=== PATIENT | female | born 1960 | race Caucasian/White ===

== ENCOUNTER 2022-09-05 17:32 | Outpatient (CLI) | payer OTHER, SELFPAY ==
--- NOTE | 2022-09-05 18:00 | CRLHL7_ITS ---
For Patients: As a result of the Century Cures Act, medical imaging exams and procedure reports are released immediately into your electronic medical record. You may view this report before your referring provider. If you have questions, please contact your health care provider. INDICATION: Right upper quadrant abdomen pain. TECHNIQUE: Ultrasound abdomen limited. Sonographic images of the right upper quadrant were obtained using stevenson-scale and color Doppler images. COMPARISON: None. FINDINGS: Liver: Coarse slightly echogenic liver.. No suspicious masses. No intrahepatic biliary dilatation. Gallbladder: No stones or sludge. Normal wall thickness. No pericholecystic fluid. Common bile duct: 5 mm. Pancreas: Unremarkable. Tail not visualized. Right kidney: Normal in size. Normal echotexture and cortex. No suspicious masses, stones, or hydronephrosis. Vasculature: Proximal abdominal aorta and IVC are unremarkable. IMPRESSION: Gallbladder is unremarkable. No stones or sludge identified. No gallbladder wall thickening. Echogenic liver with slightly coarsened echotexture may reflect chronic liver disease, hepatic steatosis. Dictated by Galo Kirk MD @ 09/05/2022 6:30:15 PM (Electronically Signed)
== END 2022-09-05 17:33 | disposition home or self-care (01) ==
PROVIDERS: PCP Family Medicine; Visit Provider Family Medicine
DX: R10.11 Right upper quadrant pain (principal)
CPT/HCPCS: 76705; 80053; 82150; 83690

== ENCOUNTER 2022-09-30 08:18 | Outpatient (CLI) | payer OTHER, SELFPAY | END 2022-09-30 08:19 | disposition home or self-care (01) | LOC: NFLDREF 15:39 | PROVIDERS: PCP Family Medicine; Referring Provider Family Medicine; Visit Provider Family Medicine | DX: Z00.00 Encounter for general adult medical examination without abnormal findings (principal); E78.5 Hyperlipidemia, unspecified; E55.9 Vitamin D deficiency, unspecified; Z13.6 Encounter for screening for cardiovascular disorders | CPT/HCPCS: 80053; 80061; 82306 ==

== ENCOUNTER 2022-12-17 12:46 | Outpatient (CLI) | payer OTHER, SELFPAY ==
--- NOTE | 2022-12-17 13:00 | CRLHL7_ITS ---
For Patients: As a result of the Cures Act, medical imaging exams and procedure reports are released immediately into your electronic medical record. You may view this report before your referring provider. If you have questions, please contact your health care provider. BILATERAL SCREENING MAMMOGRAM WITH COMPUTER-AIDED DETECTION AND TOMOSYNTHESIS TECHNIQUE: CC and MLO views were obtained. These mammographic images have been obtained using full-field digital technique. These mammographic images were interpreted with the benefit of computer-aided detection. Breast Tomosynthesis was used in this interpretation. COMPARISON FILM: 02/07/21, 01/11/20, 09/01/18. FINDINGS: There are scattered areas of fibroglandular density IMPRESSION: There is no radiographic evidence for malignancy. ASSESSMENT: BI-RADS Category 1: Negative RECOMMENDATION: Routine screening mammogram in 1 year. A lay language report of this examination will be provided to the patient. Juarez Salazar M.D. Diagnostic Radiologist [email or web address] [email or web address] Transcribed: 3:08 p.alan ramirez/Dictated by: Juarez Salazar MD @ 12/18/2022 11:17:00 AM (Electronically Signed)
== END 2022-12-17 12:47 | disposition home or self-care (01) ==
LOC: MAMMO 12:47
PROVIDERS: PCP Family Medicine; Visit Provider Family Medicine
DX: Z12.31 Encounter for screening mammogram for malignant neoplasm of breast (principal)
CPT/HCPCS: 77063; 77067

== ENCOUNTER 2024-01-16 07:35 | Outpatient (CLI) | payer BC, SELFPAY | END 2024-01-16 07:36 | disposition home or self-care (01) | LOC: NFLDREF 01-18 09:56 | PROVIDERS: PCP Family Medicine; Referring Provider Family Medicine; Visit Provider Family Medicine | DX: R10.11 Right upper quadrant pain (principal); E55.9 Vitamin D deficiency, unspecified; E78.5 Hyperlipidemia, unspecified; R53.83 Other fatigue; M81.0 Age-related osteoporosis without current pathological fracture | CPT/HCPCS: 80053; 80061; 82306 ==

== ENCOUNTER 2024-02-09 09:42 | Outpatient (CLI) | payer BC, SELFPAY ==
--- OUTSIDE RECORDS SUMMARY | 2024-02-09 09:44 | XMS_ITS | Clinical Summary ---
Author Organization [email or web address] [facility] Address [place], [place] [address] Care Team Providers Care Flaring Machine Operator Name Role Phone Roxane Martin MD Primary Care Provider Unavailable Allergies No known active allergies Medications No known medications Social History Tobacco Use Types Packs/Day Years Used Date Smoking Tobacco: Never Alcohol Use Standard Drinks/Week Comments No 0 (1 standard drink = 0.6 oz pur e alcohol) occasional Sex and Gender Information Value Date Recorded Sex Assigned at Not on file Gender Identity Not on file Sexual Orientation Not on file Obstetrics History Last Filed Vital Signs Vital Sign Reading Time Taken Comments Blood Pressure 118/76 10/31/2009 5:08 PM CDT Pulse 52 10/31/2009 5:08 PM CDT Temperature - - Respiratory Rate - - Oxygen Saturation - - Inhaled Oxygen Concentration - - Weight 68.9 kg (152 lb) 10/31/2009 5:08 PM CDT Height - - Body Mass Index - - Plan of Treatment Upcoming Encounters Date Type Department Care Team (Late st Contact Info) Description 02/09/2024 10:00 AM CDT Ancillary Procedure [facility] [address] [place] [address] Health Maintenance Due Date Last Done Comments Tdap 02/20/1972 Depression screening for age 12+ 1973 HIV for age 15-65 02/20/1976 BMI (ht and wt on same day) for age 18+ 1979 Hepatitis C screening for age 18-79 1979 Tetanus booster 1981 Colonoscopy through age 75 2006 Lipids for age 45-75 2006 Mammogram for age 45-75 2006 Zoster (shingles) series for age 50+ (1 of 2) 2011 Pap test for age 21-65 12/02/2023 , 12/01/2020, 06/09/2015, Additional history exists COVID-19 vaccine series ( season) 2024 Influenza for age 50-64 01/25/2024 Pneumococcal series for age 6-64 Aged Out No longer eligible based on patient's age to complete this topic Procedures Procedure Name Priority Date/Time Associated Diagnosis Comments GEOSCIENCE PROFESSOR THIN PREP PAP SCREEN IMAGED Routine 12/01/2020 9:50 AM CDT from Last 3 Months or Most Recently Relevant to Health Maintenance Results * GEOSCIENCE PROFESSOR THIN PREP PAP SCREEN IMAGED (12/01/2020 9:50 AM CDT) Case Report Gynecologic Cytology Report ? Case: [id number] ? Authorizing Provider: ??Shirley Hemphill PA-C ?Collected: ? 12/01/2020 0950 ? Ordering Location: ? [facility] ?Received: ?12/04/2020 1010 ? First Screen: ?Layne Carranza ? Specimen: ?GEOSCIENCE PROFESSOR ThinPrep Vial Screening, Cervical/Vaginal ? 12/13/2020 9:38 AM CDT [facility] INTERPRETATION/ RESULT NEGATIVE FOR INTRAEPITHELIAL LESION OR MALIGNANCY (NIL) (none) 12/13/2020 9:38 AM CDT [facility] IMEN ADEQUACY Satisfactory for evaluation Endocervical component present 12/13/2020 9:38 AM CDT [facility] HPV REQUEST HPV and PAP 12/13/2020 9:38 AM CDT [facility] Last Pap Date 06/09/2015 12/13/2020 9:38 AM CDT [facility] Last Pap Result NIL 9:38 AM CDT [facility] Comment:neg hpv Additional Information 12/13/2020 9:38 AM T [facility] Comment: Interpreted at [facility] - [address], [place] [address] Automated Review Successful 12/13/2020 9:38 AM T [facility] Comment:Specimen processed s uccessfully by automated supervisor laboratory animal facility device, ThinPrep Imaging System, [employer] ANCILLARY TESTING GEOSCIENCE PROFESSOR HPV Ordered, Please see separate report 12/13/2020 9:38 AM T [facility] Note The pap test is a screening technique, not a diagnostic procedure. It is used primarily to screen for squamous cancers and precursor lesions. Published studies have shown that it is subject to both false negative and false positive results. The pap test should not be used as the sole means to diagnose or exclude pre-malignant and malignant lesions. 12/13/2020 9:38 AM T [facility] Other (Cervical/Vagina l) 12/01/2020 9:50 AM CDT 12/04/2020 10:10 AM CDT August Kanchan GONZALES PATHOLOGY/CYTOLOGY [facility] [address] [place] [address], from Last 3 Months or Most Recently Relevant to Health Maintenance Care Teams Flaring Machine Operator Relationship Specialty Start Date End Date Roxane Martin MD PCP - General 10/30/09
== END 2024-02-09 09:43 | disposition home or self-care (01) ==
LOC: RAD 09:42
PROVIDERS: PCP Family Medicine; Visit Provider Family Medicine
DX: I34.0 Nonrheumatic mitral (valve) insufficiency (principal); I51.7 Cardiomegaly
CPT/HCPCS: 93306

== ENCOUNTER 2024-03-29 14:29 | Outpatient (CLI) | payer BC, SELFPAY ==
--- OUTSIDE RECORDS SUMMARY | 2024-03-29 14:31 | XMS_ITS | Clinical Summary ---
Author Organization [employer] [facility] Address [place], [place] [address] Care Team Providers Care Damper Fitter Name Role Phone Roxane Martin MD Primary Care Provider Unavailable Allergies No known active allergies Medications No known medications Encounters Date Type Department Care Team Description 02/09/2024 10:00 AM CDT Ancillary Procedure [facility] [address] [place] [address] from Last 3 Months Social History Tobacco Use Types Packs/Day Years [...] Mass Index - - Plan of Treatment Health Maintenance Due Date Last Done Comments [...] Procedure Name Priority Date/Time Associated Diagnosis Comments ECHO TTE COMPLETE WO CONTRAST Routine 02/09/2024 10:35 AM CDT Nonrheumatic mitral (valve) insufficiency MATERIALS MANAGEMENT MANAGER THIN PREP PAP SCREEN IMAGED Routine 12/01/2020 9:50 AM CDT from Last 3 Months or Most Recently Relevant to Health Maintenance Results * ECHO TTE COMPLETE WO CONTRAST (02/09/2024 10:35 AM CDT) AORTIC VALVE MEAN PG 7 mmHg EJECTION FRACTION 61 % LVEDD 4.5 cm Anatomical Region Laterality Modality Ultrasound 02/09/2024 10:0 1 AM CDT Narrative 02/09/2024 12:36 PM CDT ECHOCARDIOGRAM TRAVIS GILES ? Accession#: ?? [id number] : ?1960 63 years Study Date: ?? 02/09/2024 10:01:15 AM Gender: F ?BP: ? 135/76 mmHg Height: 173.00 cm ?BSA: ?1.87 m? ? ? Weight: 73.00 kg ? Tech: ? MBF ? Referring MD: SRIKANTH DANIELLE HERNBERG Site: ? [facility] Reading Location: Mobile OP Patient Location: Outpatient. Procedure: 2D, Color Doppler and Spectral Doppler. Indication for study: MR Cardiac Rhythm: Sinus bradycardia.Study quality: Good. Final Impressions: 1. Normal left ventricular size, normal wall thickness, normal global systolic function, calculated EF of 61 %. 2. Mildly enlarged left atrium. 3. The mitral valve is normal, trace mitral regurgitation. 4. Compared to the prior study of 07/08/2016, there is no significant change. Chamber Sizes and Function Normal left ventricular size, normal wall thickness, normal global systolic function, calculated EF of 61 %. Left atrial size is mildly enlarged. Left atrial pressure is normal. Right ventricular cavity size is normal, global systolic RV function is normal. RV wall thickness is normal. The right atrium is normal. Right atrial volume index is 26 ml/m? ? ?. Right atrial area is 17 cm? ? ?. The pulmonary artery is of normal size and origin. The sinus of Valsalva is normal sized. The ascending aorta is normal sized. Valves, RV Pressures and Diastolic Function The aortic valve is normal in structure and trileaflet, no stenosis and trivial regurgitation. The mitral valve is normal in structure, trace mitral regurgitation. Normal diastolic function. The tricuspid valve is normal in structure. Tricuspid regurgitation is trace regurgitation. The pulmonic valve is normal. Trace pulmonary regurgitation. Masses, Effusion, Shunts There is no pericardial effusion. The inferior vena cava is dilated, respiratory size variation greater than 50%. No left to right shunting was detected by limited color flow Doppler interrogation of the interatrial septum. MEASUREMENTS AND CALCULATIONS 2-D Measurements and LV Function: LVID (d) 4.5 cm Planimetered EF 61 % LVID (s) 3.4 cm LV FS% (2D) ? 23 % IVS (d) ??1.0 cm LVOT diameter ?? 2.2 cm LVPW (d) 1.0 cm HR ?55 bpm Ao Sinus 3.1 cm LA Vol index ?36 ml/m2 Asc Ao ?? 3.4 cm RA Vol index ?26 ml/m2 ?RA area ? 17 cm?RV Max 4C (d) ?? 3.9 cm Diastology: Mitral ?Tissue Doppler E Peak 0.8 m/s ??e', Septum ? 0.10 m/s A Peak 0.9 m/s ??e', Lateral ?0.10 m/s E/A ?1.0 ?E/e' Average ?? 8.26 DT ? 234 msec Aortic Valve: Vmax ? 1.7 m/s ??SUPRIYA (V) ?? 2.55 cm? ? ? VTI ?0.49 m ?? SUPRIYA (I) ?? 2.41 cm? ? ? LVOT V max 1.2 m/s ??Max PG ?12 mmHg LVOT VTI ?? 0.33 m ?? Mean PG ?? 7 mmHg SV ? 119 ml ?? Dim Index 0.66 SV index ?? 64 ml/m? ? ? CO ?6.5 l/min ?CI ?3.5 l/min/m? ? ? Mitral Valve: MVA ?3.2 cm? ? ? MV P 1/2 68 msec Tricuspid Valve and estimated PA pressures: TAPSE 2.5 cm . This study was interpreted by an [facility] accredited facility. CC: [facility]. ??Final ?? Procedure Note Juarez Love MD - 02/09/2024 ECHOCARDIOGRAM TRAVIS GILES : 1960 63 years Study Date: 02/09/2024 10:01:15 AM Gender: F BP: 135/76 mmHg Height: 173.00 cm BSA: 1.87 m? ? ? Weight: 73.00 kg Tech: JENNIFER Referring MD: SRIKANTH RAJPUT Site: [facility] Reading Location: Mobile OP Patient Location: Outpatient. Procedure: 2D, Color Doppler and Spectral Doppler. Indication for study: MR Cardiac Rhythm: Sinus bradycardia.Study quality: Good. Final Impressions: 1. Normal left ventricular size, normal wall thickness, normal globalsystolic function, calculated EF of 61 %. 2. Mildly enlarged left atrium. 3. The mitral valve is normal, trace mitral regurgitation. 4. Compared to the prior study of 07/08/2016, there is no significantchange. Chamber Sizes and Function Normal left ventricular size, normal wall thickness, normal globalsystolic function, calculated EF of 61 %. Left atrial size is mildlyenlarged. Left atrial pressure is normal. Right ventricular cavity size isnormal, global systolic RV function is normal. RV wall thickness isnormal. The right atrium is normal. Right atrial volume index is 26ml/m? ? ?. Right atrial area is 17 cm? ? ?. The pulmonary artery is of normalsize and origin. The sinus of Valsalva is normal sized. The ascendingaorta is normal sized. Valves, RV Pressures and Diastolic Function The aortic valve is normal in structure and trileaflet, no stenosis andtrivial regurgitation. The mitral valve is normal in structure, tracemitral regurgitation. Normal diastolic function. The tricuspid valve isnormal in structure. Tricuspid regurgitation is trace regurgitation. Thepulmonic valve is normal. Trace pulmonary regurgitation. Masses, Effusion, Shunts There is no pericardial effusion. The inferior vena cava is dilated,respiratory size variation greater than 50%. No left to right shunting wasdetected by limited color flow Doppler interrogation of the interatrialseptum. MEASUREMENTS AND CALCULATIONS 2-D Measurements and LV Function: LVID (d) 4.5 cm Planimetered EF 61 % LVID (s) 3.4 cm LV FS% (2D) 23 % IVS (d) 1.0 cm LVOT diameter 2.2 cm LVPW (d) 1.0 cm HR 55 bpm Ao Sinus 3.1 cm LA Vol index 36 ml/m2 Asc Ao 3.4 cm RA Vol index 26 ml/m2 RA area 17 cm? ? ? RV Max 4C (d) 3.9 cm Diastology: Mitral Tissue Doppler E Peak 0.8 m/s e', Septum 0.10 m/s A Peak 0.9 m/s e', Lateral 0.10 m/s E/A 1.0 E/e' Average 8.26 DT 234 msec Aortic Valve: Vmax 1.7 m/s SUPRIAY (V) 2.55 cm? ? ? VTI 0.49 m SUPRIYA (I) 2.41 cm? ? ? LVOT V max 1.2 m/s Max PG 12 mmHg LVOT VTI 0.33 m Mean PG 7 mmHg SV 119 ml Dim Index 0.66 SV index 64 ml/m? ? ? CO 6.5 l/min CI 3.5 l/min/m? ? ? Mitral Valve: MVA 3.2 cm? ? ? MV P 1/2 68 msec Tricuspid Valve and estimated PA pressures: TAPSE 2.5 cm . This study was interpreted by an [facility] accredited facility. CC: [facility]. Final Srikanth Rajput MD ECHO ORD * MATERIALS MANAGEMENT MANAGER THIN PREP PAP SCREEN IMAGED (12/01/2020 9:50 AM CDT) Case Report Gynecologic Cytology Report ? Case: [id number] ? Authorizing Provider: ??Shirley Hemphill PA-C ?Collected: ? 12/01/2020 0950 ? Ordering Location: ? [facility] ?Received: ?12/04/2020 1010 ? First Screen: ?Layne Carranza ? Specimen: ?MATERIALS MANAGEMENT MANAGER ThinPrep Vial Screening, Cervical/Vaginal ? 12/13/2020 9:[address] [facility] INTERPRETATION/ RESULT NEGATIVE FOR INTRAEPITHELIAL LESION OR MALIGNANCY (NIL) (none) 12/13/2020 9:[address] [facility] IMEN ADEQUACY Satisfactory for evaluation Endocervical component present 12/13/2020 9:[address] [facility] HPV REQUEST HPV and PAP 12/13/2020 9:[address] [facility] Last Pap Date 06/09/2015 12/13/2020 9:[address] [facility] Last Pap Result NIL 9:[address] [facility] Comment:neg hpv Additional Information 12/13/2020 9:[address] [facility] Comment: Interpreted at [facility] - [address] [facility] [address], [place] [address] Automated Review Successful 12/13/2020 9:[address] [facility] Comment:Specimen processed s uccessfully by automated tray checker device, ThinPrep Imaging System, [employer] ANCILLARY TESTING MATERIALS MANAGEMENT MANAGER HPV Ordered, Please see separate report 12/13/2020 9:[address] [facility] Note The pap test is [...] pre-malignant and malignant lesions. 12/13/2020 9:38 AM CDT [facility] Other (Cervical/Vagina l) 12/01/2020 9:50 AM CDT 12/04/2020 10:10 AM CDT August Kanchan GONZALES PATHOLOGY/CYTOLOGY [facility] [address] [place] [address], from Last 3 Months or Most Recently Relevant to Health Maintenance Care Teams Damper Fitter Relationship Specialty Start Date End Date Roxane Martin MD PCP - General 10/30/09
--- NOTE | 2024-03-29 14:40 | CRLHL7_ITS ---
For Patients: As a result of the Century Cures Act, medical imaging exams and procedure reports are released immediately into your electronic medical record. You may view this report before your referring provider. If you have questions, please contact your health care provider. BILATERAL SCREENING MAMMOGRAM WITH COMPUTER-AIDED DETECTION AND TOMOSYNTHESIS TECHNIQUE: CC and MLO views were obtained. These mammographic images have been obtained using full-field digital technique. These mammographic images were interpreted with the benefit of computer-aided detection. Breast Tomosynthesis was used in this interpretation. COMPARISON FILM: 12/17/22, 02/07/21, 01/11/20. FINDINGS: There are scattered areas of fibroglandular density. IMPRESSION: There is no radiographic evidence for malignancy. ASSESSMENT: BI-RADS Category 1: Negative RECOMMENDATION: Routine screening mammogram in 1 year. A lay language report of this examination will be provided to the patient. Jamie Hong M.D. Diagnostic/Nuclear Medicine Radiologist [email or web address] SP/Dictated by: Jamie Hong MD @ 03/31/2024 12:07:00 PM (Electronically Signed)
== END 2024-03-29 14:30 | disposition home or self-care (01) ==
LOC: MAMMO 14:29
PROVIDERS: PCP Family Medicine; Visit Provider Family Medicine
DX: Z12.31 Encounter for screening mammogram for malignant neoplasm of breast (principal)
CPT/HCPCS: 77063; 77067

== ENCOUNTER 2024-04-12 07:47 | Outpatient (CLI) | payer BC, SELFPAY ==
--- OUTSIDE RECORDS SUMMARY | 2024-04-14 13:12 | XMS_ITS | Clinical Summary ---
Author Organization [employer] [facility] [employer] [facility] Address [place], [place] [address] Care Team Providers Care Sr. Consultant Name Role Phone Roxane Martin MD Primary Care Provider Unavailable Allergies No known active allergies Medications No known medications Encounters Date Type Department Care Team Description 02/09/2024 10:00 AM CDT Ancillary Procedure [facility] [address] [place] [address] from Last 3 Months Social History Tobacco [...] 10:35 AM CDT Nonrheumatic mitral (valve) insufficiency HYDROLOGY TEACHER THIN PREP PAP SCREEN IMAGED Routine 12/01/2020 9:50 AM CDT from Last 3 Months or Most Recently Relevant to Health Maintenance Results * ECHO TTE COMPLETE WO CONTRAST (02/09/2024 10:35 AM CDT) AORTIC VALVE MEAN PG 7 mmHg EJECTION FRACTION 61 % LVEDD 4.5 cm Anatomical Region Laterality Modality Ultrasound 02/09/2024 10:0 1 AM CDT Narrative 02/09/2024 12:36 PM CDT ECHOCARDIOGRAM TRAVIS GILES : 1960 63 years Study Date: 02/09/2024 10:01:15 AM Gender: F BP: 135/76 mmHg Height: 173.00 cm BSA: 1.87 m Weight: 73.00 kg Tech: JENNIFER Referring MD: SRIKANTH RAJPUT Site: [facility] Reading Location: Mobile OP Patient [...] normal. Right atrial volume index is 26 ml/m . Right atrial area is 17 cm . The pulmonary artery is of normal size [...] Vol index 26 ml/m2 RA area 17 cm RV Max 4C (d) 3.9 cm Diastology: Mitral Tissue Doppler E Peak 0.8 m/s e', Septum 0.10 m/s A Peak 0.9 m/s e', Lateral 0.10 m/s E/A 1.0 E/e' Average 8.26 DT 234 msec Aortic Valve: Vmax 1.7 m/s SUPRIYA (V) 2.55 cm VTI 0.49 m SUPRIYA (I) 2.41 cm LVOT V max 1.2 m/s Max PG 12 mmHg LVOT VTI 0.33 m Mean PG 7 mmHg SV 119 ml Dim Index 0.66 SV index 64 ml/m CO 6.5 l/min CI 3.5 l/min/m Mitral Valve: MVA 3.2 cm MV P 1/2 68 msec Tricuspid Valve and estimated PA pressures: TAPSE 2.5 cm . This study was interpreted by an [facility] accredited facility. CC: [facility] (med records) [facility]. Final Procedure Note Juarez Love MD - 02/09/2024 ECHOCARDIOGRAM TRAVIS GILES : 1960 63 years Study Date: 02/09/2024 10:01:15 AM Gender: F BP: 135/76 mmHg Height: 173.00 cm BSA: 1.87 m Weight: 73.00 kg Tech: [facility] Referring MD: SRIKANTH RAJPUT Site: [facility] Reading Location: Mobile OP Patient [...] is normal. Right atrial volume index is 26ml/m . Right atrial area is 17 cm . The pulmonary artery is of normalsize and [...] Vol index 26 ml/m2 RA area 17 cm RV Max 4C (d) 3.9 cm Diastology: Mitral Tissue Doppler E Peak 0.8 m/s e', Septum 0.10 m/s A Peak 0.9 m/s e', Lateral 0.10 m/s E/A 1.0 E/e' Average 8.26 DT 234 msec Aortic Valve: Vmax 1.7 m/s SUPRIYA (V) 2.55 cm VTI 0.49 m SUPRIYA (I) 2.41 cm LVOT V max 1.2 m/s Max PG 12 mmHg LVOT VTI 0.33 m Mean PG 7 mmHg SV 119 ml Dim Index 0.66 SV index 64 ml/m CO 6.5 l/min CI 3.5 l/min/m Mitral Valve: MVA 3.2 cm MV P 1/2 68 msec Tricuspid Valve and estimated PA pressures: TAPSE 2.5 cm . This study was interpreted by an [facility] accredited facility. CC: [facility] ([facility]. Final Srikanth Rajput MD ECHO ORD * HYDROLOGY TEACHER THIN PREP PAP SCREEN IMAGED (12/01/2020 9:50 AM CDT) Case Report Gynecologic Cytology Report Case: [id number] Authorizing Provider: Shirley Hemphill PA-C Collected: 12/01/2020 0950 Ordering Location: [facility] Received: 12/04/2020 1010 First Screen: Layne Carranza Specimen: HYDROLOGY TEACHER ThinPrep Vial Screening, Cervical/Vaginal 12/13/2020 9:[address] [facility] INTERPRETATION/ RESULT NEGATIVE FOR INTRAEPITHELIAL LESION OR MALIGNANCY (NIL) (none) 12/13/2020 9:38 AM CDT [facility] IMEN ADEQUACY Satisfactory for evaluation Endocervical component present 12/13/2020 9:38 AM CDT [facility] HPV REQUEST HPV and PAP 12/13/2020 9:38 AM CDT [facility] Last Pap Date 06/09/2015 12/13/2020 9:38 AM CDT [facility] Last Pap Result NIL 9:38 AM CDT [facility] Comment:neg hpv Additional Information 12/13/2020 9:38 AM CDT [facility] Comment: Interpreted at [facility] - [address], [place] [address] Automated Review Successful 12/13/2020 9:38 AM CDT [facility] Comment:Specimen processed s uccessfully by automated amalgamator device, ThinPrep Imaging System, [employer] ANCILLARY TESTING HYDROLOGY TEACHER HPV Ordered, Please see separate report 12/13/2020 9:38 AM CDT [facility] Note The pap test is a [...] and malignant lesions. 12/13/2020 9:38 AM CDT [facility] Other (Cervical/Vagina l) 12/01/2020 9:50 AM CDT 12/04/2020 10:10 AM CDT Shirley Ally Hemphill PA-C PATHOLOGY/CYTOLOGY [facility] [address] [place] [address], [place] from Last 3 Months or Most Recently Relevant to Health Maintenance Care Teams Sr. Consultant Relationship Specialty Start Date End Date Roxane Martin MD PCP - General 10/30/09
== END 2024-04-12 07:48 | disposition home or self-care (01) ==
LOC: NFLDREF 04-14 13:11
PROVIDERS: PCP Family Medicine; Referring Provider Family Medicine; Visit Provider Family Medicine
DX: E78.5 Hyperlipidemia, unspecified (principal)
CPT/HCPCS: 80061

== ENCOUNTER 2025-03-28 07:50 | Outpatient (CLI) | payer BC, SELFPAY | END 2025-03-28 07:51 | disposition home or self-care (01) | LOC: NFLDREF 03-31 09:16 | PROVIDERS: PCP Family Medicine; Referring Provider Family Medicine; Visit Provider Family Medicine | DX: E55.9 Vitamin D deficiency, unspecified (principal); E78.5 Hyperlipidemia, unspecified; R53.83 Other fatigue | CPT/HCPCS: 80053; 80061; 82306 ==

== ENCOUNTER 2025-04-05 17:00 | Outpatient (CLI) | payer BC, SELFPAY ==
--- NOTE | 2025-04-05 17:20 | CRLHL7_ITS ---
For Patients: As a result of the Century Cures Act, medical imaging exams and procedure reports are released immediately into your electronic medical record. You may view this report before your referring provider. If you have questions, please contact your health care provider. INDICATION: BILATERAL SCREENING MAMMOGRAM, ASYMPTOMATIC 65 Y/O FEMALE COMPARISON: 03/29/2024, 12/17/2022, 02/07/2021 TECHNIQUE: Digital mammogram in CC and MLO projections including computer-aided detection (CAD) and tomosynthesis. BREAST COMPOSITION: There are scattered areas of fibroglandular density. FINDINGS: No suspicious findings. ASSESSMENT: BI-RADS 1 Negative RECOMMENDATION: Annual screening mammogram. A lay language report of this examination will be provided to the patient. Dictated by: Juarez Salazar MD @ 04/06/2025 09:34:14 (Electronically Signed)
== END 2025-04-05 17:01 | disposition home or self-care (01) ==
PROVIDERS: PCP Family Medicine; Visit Provider Family Medicine
DX: Z12.31 Encounter for screening mammogram for malignant neoplasm of breast (principal)
CPT/HCPCS: 77063; 77067